=== PATIENT | male | born 1985 | race American Indian/Alaskan Native ===

== ENCOUNTER 2016-09-21 05:45 | Emergency (ER) | payer MEDICARE ==
[2016-09-21 06:26] LABS: Urine Drugs of Abuse Note Disclamer
[2016-09-21 06:42] LABS: BUN/Creatinine Ratio 22.85; Blood Urea Nitrogen 16 mg/dL (9-20); Calcium 9.5 mg/dL (8.4-10.2); Carbon Dioxide 28 mmol/L (22-30); Glucose 101 mg/dL (75-100)
[2016-09-21 06:43] LABS: Anion Gap 17 mmol/L; Chloride 100.6 mmol/L (98-107); Potassium 4.1 mmol/L (3.6-5.0); Sodium 141 mmol/L (137-145)
[2016-09-21 06:47] LABS: Eosinophils % (Auto) 1.6 % (0.0-4.3); Hematocrit 45.5 % (35.5-45.6); Hemoglobin 14.8 gm/dl (11.8-15.2); Mean Corpuscular HGB Conc 33 % (32-34); Mean Corpuscular Hemoglobin 27 pg (28-32); Mean Corpuscular Volume 84 fl (84-94); Platelet Count 237 K/mm3 (140-440); Red Blood Count 5.45 M/mm3 (3.65-5.03); Red Cell Distribution Width 14.5 % (13.2-15.2); White Blood Count 5.8 K/mm3 (4.5-11.0)
[2016-09-21 06:49] LABS: Bacteria,Urine 4+ /HPF (Negative); Bilirubin,Urine NEG (Negative); Blood,Urine NEG (Negative); Ketones,Urine NEG (Negative); Leukocyte Esterase,Urine NEG (Negative); Mucus,Urine 3+ /HPF; Nitrite,Urine NEG (Negative); Protein,Urine <15 mg/dL mg/dL (Negative); Sperm,Urine 2+ /HPF (NP); Urobilinogen,Urine < 2.0 mg/dL (<2.0)
[2016-09-21 13:51] LABS: Salicylate < 0.3 mg/dL (2.8-20.0); Valproate < 2.8 ug/mL (50-100)
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
[2016-09-21] MEDS ORDERED: ZOLOFT PO SCH (19:00)
[2016-09-21] MEDS ORDERED: NON-FORMULARY (Risperidone [Risperdal] 2 MG) PO SCH (22:00)
[2016-09-21] MEDS ORDERED: RisperDAL PO SCH (22:00)
[2016-09-21] MEDS ORDERED: NON-FORMULARY (Clonazepam [Klonopin] 1 MG) PO SCH (22:00)
[2016-09-21 22:01] VITALS: BP 120/88
== END 2016-09-22 01:49 ==
LOC: EEVIPCON 05:45 → ED 05:45
DX: R45.850 Homicidal ideations (principal); F20.9 Schizophrenia, unspecified
CPT/HCPCS: 36415; 80048; 80164; 80307; 81001; 82550; 85025; 99285; G0480; 80320

== ENCOUNTER 2019-06-27 20:09 | Emergency (ER) | payer OTHER, MEDICARE ==
[2019-06-27 20:19] VITALS: BP 140/96
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
[2019-06-27] MEDS ORDERED: IBUPROFEN PO ONE ×2 (21:53)
[2019-06-27] MEDS ORDERED: FLEXERIL PO ONE (21:53)
[2019-06-27] MEDS ORDERED: FLEXERIL ONE (21:53)
== END 2019-06-27 22:09 | disposition home or self-care (01) ==
LOC: ED 20:09
DX: S39.012A Strain of muscle, fascia and tendon of lower back, initial encounter (principal); S16.1XXA Strain of muscle, fascia and tendon at neck level, initial encounter; F41.9 Anxiety disorder, unspecified; F20.9 Schizophrenia, unspecified; F17.200 Nicotine dependence, unspecified, uncomplicated; F14.10 Cocaine abuse, uncomplicated; F12.10 Cannabis abuse, uncomplicated; Z79.899 Other long term (current) drug therapy; V87.7XXA Person injured in collision between other specified motor vehicles (traffic), initial encounter; Y93.89 Activity, other specified; Y92.488 Other paved roadways as the place of occurrence of the external cause; Y99.8 Other external cause status
CPT/HCPCS: 72040; 72100; 99283